=== PATIENT | female | born 1955 | race Caucasian/White ===

== ENCOUNTER → 2018-06-24 | Day surgery (SDC) | payer MEDICARE, BC ==
[~2018-06-24] MED LIST: BUPIVACAINE HCL 0.5 % INJ/PF 30 ML SDV ONE
--- NOTE | 2018-06-24 09:23 | Operative Report ---
PROCEDURE: KNEE RADIOFREQUENCY right under ultrasound guidance Preoperative Diagnosis: right knee osteoarthritis Postoperative Diagnosis:right knee osteoarthritis 1. Superolateral genicular branch from the vastus lateralis 2. Superomedial genicular branch from the vastus medialis 3. Inferomedial genicular branch from the saphenous nerve 4. Medial retinacular branch from the vastus intermedius DATE OF PROCEDURE: 24 june 2018 ANESTHESIA: Local anesthesia COMPLICATIONS: None reported PROCEDURE IN DETAIL: Hx/PE/meds/allergies/applicable labs reviewed. No changes and no contraindications were found. Full description of the procedure was provided including benefits as well as possible complications including transient increased pain, stomach irritation, mood alteration, transient weakness or parasthesias as well as more serious nerve injury, bleeding, infection or allergic reaction. Informed consent was obtained and documented. The patient was brought to the procedure room and placed on the exam table in a comfortable supine position. The place for needle placement was obtained by manual palpation with ultrasound confirmation. The sterile field was prepared by chloroprep and sterile drapes. Local anesthesia superficial and deep was provided by local infiltration of 2% lidocaine. A 17g 50mm radiofrequency introducer needle with a 4 mm active tip was placed overlying the right knee joint and using ultrasound guidance the needle was advanced to a bony endpoint on the superiolateral portion of the femoral condyle of the [L/R] knee. A second needle was advanced to a bony endpoint on the superiomedial portion of the femoral condyle. A third needle was then placed over the inferiomedial portion of the tibial condyle until a bony endpoint was met. 4th needle placed 3mm above the patella with the tip in contact with the Medial retinacular branch from the vastus intermedius. Attempted aspiration yielded no blood. Transverse ultrasound views showed all the needles at 50% depth of the femur and tibia. Motor stimulation was tested at 2.0 volts with no leg movement. Images were saved in AP and lateral. A mixture consisting of 0.5% bupivacaine was slowly injected. Then a radiofrequency ablation of each of the geniculate nerves were done at 80 degrees Celsius for 2 minutes and 30 seconds each. The needles were withdrawn. The patient tolerated the procedure well. After observation the patient was discharged with instructions and follow up. They were also provided contact information to call regarding any concerning symptoms or questions. IMPRESSION: 1. Successful geniculate right knee radiofrequency ablation was performed. 2. The patient was given prescription of home medicines. 3. RTC in 1-2 week(s).
== END ==
LOC: RAD 09:09
PROVIDERS: ATTEND Family Medicine
DX: M17.11 Unilateral primary osteoarthritis, right knee (principal)
CPT/HCPCS: 64640 ×4; J3490

== ENCOUNTER 2020-09-12 09:25 | Day surgery (SDC) | payer MEDICARE, BC ==
[~2020-09-12 09:25] MED LIST changes: -BUPIVACAINE HCL 0.5 % INJ/PF 30 ML SDV ONE; +CHONDR SU A NA/HYALUR INTRAOC KIT (SURGICARE) ONE; +DORZOLAMIDE HCL 2%/TIMOLOL MALEAT 0.5% OPH SOLN 10 ML OD PRN; +EPINEPHRINE INJ/PF 1 MG/1 ML AMPULE ONE; +KETOROLAC TROMETHAMINE 0.45% 4 DROP/0.4 ML DROPERETTE OD PRN; +LIDOCAINE 1%/PHENYLEPHRINE 1.5% 1 ML VIAL ONE; +PREDNISOLONE ACETATE 1% OPH SUSP 5 ML OD PRN
[2020-09-12] MEDS ORDERED: MIDAZOLAM 2 MG/2 ML INJ ONE (09:40)
[2020-09-12] MEDS ORDERED: ONDANSETRON HCL INJ/PF 4 MG/2 ML SDV ONE (09:40)
[2020-09-12] MEDS ORDERED: FENTANYL CITRATE INJ/PF 100 MCG/2 ML AMPUL ONE (09:40)
[2020-09-12] MEDS: TROPICAMIDE 1% OPH SOLN 15 ML OD PRN ×3 (10:02→10:21)
[2020-09-12] MEDS: TETRACAINE HCL 0.5% OPH SOLN 4 ML OD PRN ×3 (10:02→10:33)
[2020-09-12] MEDS: CYCLOPENTOLATE 0.2%/PHENYLEPHRINE 1% OPH SOLN 2 ML OD PRN ×3 (10:03→10:21)
[2020-09-12] MEDS: BESIFLOXACIN HCL 0.6% OPH SUSP 5 ML BOTTLE OD PRN ×3 (10:03→10:56)
--- NOTE | 2020-09-12 14:27 | Operative Report ---
Operative Report-[facility] Operative Report: DATE OF SURGERY: September 12, 2020 PREOPERATIVE DIAGNOSIS: NUCLEAR CATARACT, RIGHT EYE. Glaucoma POSTOPERATIVE DIAGNOSIS: NUCLEAR CATARACT, RIGHT EYE. Glaucoma PROCEDURE PERFORMED: PHACOEMULSIFICATION WITH POSTERIOR CHAMBER INTRAOCULAR LENS IMPLANT, RIGHT EYE. With I stent SURGEON: Berhane Snell DO MEDICATIONS AND ANESTHESIA: Versed: IV Versed Tetracaine drops: 1 to 2 drops given as needed COMPLICATION: None INDICATIONS FOR SURGERY: Medical necessity: Best corrected visual acuity worse than 20/40 secondary to cataracts with impairment of ability to carry out needs or desired activities, blurred vision, visual distortion, reduced contrast sensitivity and/or glare with association functional impairment and supporting documentation/testing, and cataracts causing symptomatic impairment of visual functions not corrected with tolerable changes in glasses or contact lenses interfering with activities of daily life. PROCEDURE: Consent: The risks, benefits and alternatives of this procedures was discussed with the patient. The patient read and signed the consent forms, was identified and was seated in the exam chair. IOL: MX 60 E 20.5 IOL Diopters: Phacoemulsification with posterior chamber intraocular lens implant: The face was prepped with 5% povidone iodine solution, and a few drops of 5% povidone iodine solution was instilled into the inferior fornix. A non-fenestrated drape was placed over the eye and the lids were parted with the speculum. A paracentesis was made with a 15 degree blade, and 1% lidocaine MPF followed by viscoelastic was injected into the anterior chamber. A 2.4 mm metal micro- keratome was used to create a temporal clear corneal incision. A circular anteri or capsulorrhexis was created, followed by hydro-dissection and hydro- delineation. The phacoemulsification hand piece was inserted and the nucleus was removed with the Phaco chop technique. The irrigation-aspiration hand piece was used to remove the residual cortex, and vacuum the posterior capsule. The capsular bag was inflated and viscoelastic and the above-mentioned IOL was injected into the eye with care to insert both leaning and trailing haptics in the capsular bag. The irrigation/aspiration hand piece was reinserted to remove residual viscoelastic from the capsular bag and anterior chamber. The corneal incision was hydrated, and anterior chamber was inflated with sterile BSS via the paracentesis site, and found to be watertight. In addition the I stent inject was used to place 2 stents approximately 2 clock hours apart. Postop medication: 1 drop of prednisolone into operative by followed by 1 drop of Cosopt into operative eye followed by 1 drop of Besivance intraoperative by other:
== END 2020-09-12 11:28 ==
LOC: SC 09:25
PROVIDERS: ATTEND Ophthalmology
DX: H25.11 Age-related nuclear cataract, right eye (principal); H40.1111 Primary open-angle glaucoma, right eye, mild stage; M19.90 Unspecified osteoarthritis, unspecified site; I10 Essential (primary) hypertension; E78.00 Pure hypercholesterolemia, unspecified; G20 Parkinson's disease
CPT/HCPCS: 0191T; 66984; C1783; J0171; J2250; J2405; J3010; J3490; V2632

== ENCOUNTER 2020-09-26 06:51 | Day surgery (SDC) | payer MEDICARE, BC ==
[2020-09-26] MEDS ORDERED: LIDOCAINE 1%/PHENYLEPHRINE 1.5% 1 ML VIAL ONE (07:11)
[2020-09-26] MEDS ORDERED: EPINEPHRINE INJ/PF 1 MG/1 ML AMPULE ONE (07:11)
[2020-09-26] MEDS ORDERED: CHONDR SU A NA/HYALUR INTRAOC KIT (SURGICARE) ONE (07:13)
[2020-09-26] MEDS: TROPICAMIDE 1% OPH SOLN 15 ML OS PRN ×3 (07:39→08:04)
[2020-09-26] MEDS: CYCLOPENTOLATE 0.2%/PHENYLEPHRINE 1% OPH SOLN 2 ML OS PRN ×3 (07:39→08:04)
[2020-09-26] MEDS: TETRACAINE HCL 0.5% OPH SOLN 4 ML OS PRN ×2 (07:39→08:08)
[2020-09-26] MEDS: KETOROLAC TROMETHAMINE 0.45% 4 DROP/0.4 ML DROPERETTE OS PRN ×2 (07:39→08:04)
[2020-09-26] MEDS: BESIFLOXACIN HCL 0.6% OPH SUSP 5 ML BOTTLE OS PRN ×4 (07:39→08:25)
[2020-09-26] MEDS ORDERED: MIDAZOLAM 2 MG/2 ML INJ ONE (07:50)
[2020-09-26] MEDS: PREDNISOLONE ACETATE 1% OPH SUSP 5 ML OS PRN ×2 (08:18→08:25)
[2020-09-26] MEDS: DORZOLAMIDE HCL 2%/TIMOLOL MALEAT 0.5% OPH SOLN 10 ML OS PRN ×2 (08:18→08:25)
[2020-09-26] MEDS ORDERED: CHONDR SU A NA/HYALUR SOD 0.5 ML DISP.SYRIN ONE (08:44)
--- NOTE | 2020-09-26 11:00 | Operative Report ---
Operative Report-[facility] Operative Report: DATE OF SURGERY: September 26, 2020 PREOPERATIVE DIAGNOSIS: NUCLEAR CATARACT, LEFT EYE. Glaucoma POSTOPERATIVE DIAGNOSIS: NUCLEAR CATARACT, LEFT EYE. Glaucoma PROCEDURE PERFORMED: PHACOEMULSIFICATION WITH POSTERIOR CHAMBER INTRAOCULAR LENS IMPLANT, LEFT EYE. With I stent inject SURGEON: Berhane Snell, MEDICATIONS AND ANESTHESIA: Versed: IV Versed Tetracaine drops: 1 to 2 drops given as needed COMPLICATION: None INDICATIONS FOR SURGERY: Medical necessity: Best corrected visual acuity worse than 20/40 secondary to cataracts with impairment of ability to carry out needs or desired activities, blurred vision, visual distortion, reduced contrast sensitivity and/or glare with association functional impairment and supporting documentation/testing, and cataracts causing symptomatic impairment of visual functions not corrected with tolerable changes in glasses or contact lenses interfering with activities of daily life. PROCEDURE: Consent: The risks, benefits and alternatives of this procedures was discussed with the patient. The patient read and signed the consent forms, was identified and was seated in the exam chair. IOL: MX 60 E 21.0 IOL Diopters: Phacoemulsification with posterior chamber intraocular lens implant: The face was prepped with 5% povidone iodine solution, and a few drops of 5% povidone iodine solution was instilled into the inferior fornix. A non-fenestrated drape was placed over the eye and the lids were parted with the speculum. A paracentesis was made with a 15 degree blade, and 1% lidocaine MPF followed by viscoelastic was injected into the anterior chamber. A 2.4 mm metal micro- keratome was used to create a temporal clear corneal incision. A circular a nterior capsulorrhexis was created, followed by hydro-dissection and hydro- delineation. The phacoemulsification hand piece was inserted and the nucleus was removed with the Phaco chop technique. The irrigation-aspiration hand piece was used to remove the residual cortex, and vacuum the posterior capsule. The capsular bag was inflated and viscoelastic and the above-mentioned IOL was injected into the eye with care to insert both leaning and trailing haptics in the capsular bag. The irrigation/aspiration hand piece was reinserted to remove residual viscoelastic from the capsular bag and anterior chamber. The corneal incision was hydrated, and anterior chamber was inflated with sterile BSS via the paracentesis site, and found to be watertight. In addition the I stent inject was used to place 2 stents approximately 2 clock hours apart. Postop medication:1 drop of prednisolone into operative by followed by 1 drop of Cosopt into operative eye followed by 1 drop of Besivance intraoperative by Other:
--- OUTSIDE RECORDS SUMMARY | 2020-09-27 17:53 | XMS REPORT ---
:1955 [facility] [address] [place] [address] Care Team Providers Name Role Phone Unavailable Unavailable Unavailable Allergies, Adverse Reactions, Alerts This patient has no known allergies or adverse reactions. Medications Ordered Filled Start Stop Current Ordering Indication Dosage Frequency Signature Comments Components Medication Medication Date Date Medication? Clinician (SIG) Name Name benzonatate No 1mg Q1D benzonatat 100 mg e 100 mg capsule capsule Take 1 mg Take 1 mg every day every day by oral by oral route for 5 route for days. 5 days. carbidopa No 1 QID carbidopa 25 25 mg-levodopa mg-levodop 100 mg a 100 mg tablet take tablet 1 po 3-4 take 1 po times daily 3-4 times daily diazepam 5 No diazepam 5 mg tablet mg tablet Take 1 Take 1 tablet by tablet by mouth 30 mouth 30 minutes minutes before before procedure, procedure, Bring 1 Bring 1 tablet with tablet you to the with you procedure to the and take as procedure needed. and take as needed. furosemide No 1 Q1D furosemide 20 mg 20 mg tablet Take tablet 1 tablet as Take 1 needed by tablet as oral route. needed by oral route. gabapentin No 1capsul TID gabapentin 100 mg e(s) 100 mg capsule capsule Take 1 Take 1 capsule 3 capsule 3 times a day times a by oral day by route for oral route 90 days. for 90 days. lisinopril No lisinopril 10 mg 10 mg tablet Take tablet 1 tablet Take 1 every day tablet by oral every day route for by oral 90 days. route for 90 days. olopatadine No olopatadin 0.1 % eye e 0.1 % drops Use eye drops as directed Use as directed Restasis No Restasis 0.05 % eye 0.05 % eye drops in a drops in a dropperette dropperett Use as e Use as directed directed rosuvastati No rosuvastat n 10 mg in 10 mg tablet Take tablet 1 tablet Take 1 every day tablet by oral every day route for by oral 90 days. route for 90 days. valacyclovi No valacyclov r 500 mg ir 500 mg tablet Take tablet 1 tablet Take 1 every day tablet by oral every day route for by oral 90 days. route for 90 days. Yuvafem 10 No Yuvafem 10 mcg vaginal mcg tablet vaginal tablet zolpidem 10 No 1 Q1D zolpidem mg tablet 10 mg Take 1 tablet tablet Take 1 every day tablet by oral every day route for by oral 30 days. route for 30 days. isradipine No isradipine 2.5 mg 2.5 mg capsule 1 capsule 1 po qd po qd prednisone No prednisone 10 mg 10 mg tablet tablet Bactrim DS No Bactrim DS 800 mg-160 800 mg-160 mg tablet mg tablet Take 1 Take 1 tablet tablet twice daily twice for 1 to 3 daily for days at 1 to 3 first onset days at of symptoms first of bladder onset of infection symptoms of bladder infection Fosamax 70 No 1 Q1W Fosamax 70 mg tablet mg tablet Take 1 Take 1 tablet tablet every week every week by oral by oral route. route. lisinopril No 1 Q1D lisinopril 5 mg tablet 5 mg Take 1 tablet tablet Take 1 every day tablet by oral every day route. by oral route. ropinirole No 2 TID ropinirole 0.25 mg 0.25 mg tablet Take tablet 2 tablets 3 Take 2 times a day tablets 3 by oral times a route. day by oral route. tizanidine No .5 Q6H tizanidine 4 mg tablet 4 mg Take 0.5 tablet tablets Take 0.5 every 6 tablets hours by every 6 oral route hours by as needed. oral route as needed. amantadine No 1 BID amantadine HCl 100 mg HCl 100 mg tablet Take tablet 1 tablet Take 1 twice a day tablet by oral twice a route. day by oral route. Medications No Medication not s not documented documented Problems Condition Condition Condition Status Onset Resolution Last Treatin g Comments Name Details Category Date Date Treatment Clinician Date Tardive Tardive Problem Active dyskinesia Dyskinesia 2-17 00:00: 00 Constipatio Constipatio Problem Active 2018-11 n n 1-14 00:00: 00 Recurrent Recurrent Problem Active 2018-11 cystitis Cystitis 1-14 00:00: 00 Atrophic Atrophic Problem Active 2018-11 vaginitis Vaginitis 1-14 00:00: 00 Urgent Urgent Problem Active 2018-11 desire to Desire to -14 urinate Urinate 00:00: 00 Osteoarthri Osteoarthri Problem Active tis of knee tis of Knee 02-26 00:00: 00 Knee pain Knee Pain Problem Active 4 00:00: 00 Herpesvirus Herpesvirus Problem Active infection Infection 02-05 00:00: 00 Hypercholes Hypercholes Problem Active terolemia terolemia 02-05 00:00: 00 Parkinson's Parkinson's Problem Active disease Disease 02-05 00:00: 00 Hypertensiv Hypertensiv Problem Active e disorder e Disorder 02-05 00:00: 00 Right-sided Right-sided Problem Active tinnitus tinnitus Right Right Problem Active asymmetrica asymmetrica l SNHL l SNHL Sensorineur Sensorineur Problem Active al hearing al hearing loss, loss, bilateral bilateral BPPV BPPV Problem Active (benign (benign paroxysmal paroxysmal positional positional vertigo), vertigo), right right Procedures Procedure Date / Time Performed Performing Clinician Devic e RADIOLOGIC EXAM, KNEE; COMPLETE, 4 2019-10-05 00:00:00 OR MORE VIEWS Mammography 2018-11-16 00:00:00 Radiofrequency Ablation (Surg) 2018-06-24 00:00:00 Colonoscopy 2013-11-16 00:00:[address] GASTR ADJ DEVICE 2008-11-16 00:00:00 Foot Surgery 2007-11-16 00:00:00 Knee Surgery 2007-11-16 00:00:00 Procedures not documented Results Test Description Test Time Test Comments Text Results Atomic Results Result Comments Urinalysis dipstick panel - Urine by Automated test strip 2018-11 15:32:22 Test Item Value Reference Range Comments RESULT SG Reference Range: 1.000-1.030 (test code = RESULT SG Re ference 1.020 Range: 1.000-1.030) RESULT PH Reference Range: 5-9 (test code = RESULT PH Reference Range: 5-9) 5 RESULT KRISTOFER Reference Range: NEG (test code = RESULT KRISTOFER Referenc e Range: NEG NEG) RESULT NIT Reference Range: NEG (test code = RESULT NIT Referenc e Range: NEG NEG) RESULT PRO Reference Range: NEG (test code = RESULT PRO Referenc e Range: NEG NEG) RESULT GLU Reference Range: NORM (test code = RESULT GLU Referen ce Range: NORM NORM) RESULT KET Reference Range: NEG (test code = RESULT KET Referenc e Range: NEG NEG) RESULT BLD Reference Range: NEG (test code = RESULT BLD Referenc e Range: NEG NEG) Urinalysis dipstick panel - Urine by Automated test [id number] 15:32:22 Test Item Value Reference Range Comments RESULT SG Reference Range: 1.000-1.030 (test code = 1.020 RESULT SG Reference Range: 1.000-1.030) RESULT PH Reference Range: 5-9 (test code = RESULT PH 5 Reference Range: 5-9) RESULT KRISTOFER Reference Range: NEG (test code = RESULT NEG KRISTOFER Reference Range: NEG) RESULT NIT Reference Range: NEG (test code = RESULT NEG NIT Reference Range: NEG) RESULT PRO Reference Range: NEG (test code = RESULT NEG PRO Reference Range: NEG) RESULT GLU Reference Range: NORM (test code = RESULT NORM GLU Reference Range: NORM) RESULT KET Reference Range: NEG (test code = RESULT NEG KET Reference Range: NEG) RESULT BLD Reference Range: NEG (test code = RESULT NEG BLD Reference Range: NEG) Assessments Condition Name Status Diagnosis Date Treating Clinici an BPPV (benign paroxysmal positional Active vertigo), right Sensorineural hearing loss, bilateral Active Right asymmetrical SNHL Active Right-sided tinnitus Active Knee pain Active 2020-08-08 09:41:19 Osteoarthritis of knee Active 2020-08-08 09:41:21 Osteoarthritis of knee Active 2020-08-01 08:39:57 Knee pain Active 2020-08-01 08:39:57 Osteoarthritis of knee Active 2020-07-26 10:23:27 Knee pain Active 2020-07-27 11:01:47 Knee pain Active 2020-07-03 08:46:24 Osteoarthritis of knee Active 2020-07-03 08:47:48 Effusion of right knee joint Active 2020-07-03 08:47:48 Iliotibial band friction syndrome Active 2020-07-04 14: 29:50 Knee pain Active 2020-03-28 15:22:56 Osteoarthritis of knee Active 2020-03-28 16:14:25 Effusion of right knee joint Active 2020-03-28 16:48:43 Knee pain Active 2020-01-18 08:59:54 Osteoarthritis of knee Active 2020-01-18 08:59:54 Parkinson's disease Active 2020-01-18 08:59:54 Tardive dyskinesia Active 2020-01-18 08:59:54 Knee pain Active 2020-01-16 09:21:57 Osteoarthritis of knee Active 2020-01-16 09:21:57 Parkinson's disease Active 2020-01-16 09:21:57 Tardive dyskinesia Active 2020-01-16 09:21:57 Knee pain Active 2020-01-11 13:40:03 Osteoarthritis of knee Active 2020-01-11 16:57:07 Knee pain Active 2020-01-10 08:02:36 Osteoarthritis of knee Active 2020-01-10 08:02:36 Parkinson's disease Active 2020-01-10 08:02:36 Tardive dyskinesia Active 2020-01-10 08:02:36 Knee pain Active 2020-01-06 14:37:09 Osteoarthritis of knee Active 2020-01-06 14:37:09 Parkinson's disease Active 2020-01-06 14:37:09 Tardive dyskinesia Active 2020-01-06 14:37:09 Knee pain Active 2020-01-04 14:32:58 Osteoarthritis of knee Active 2020-01-04 15:17:15 Knee pain Active 2020-01-03 09:09:57 Osteoarthritis of knee Active 2020-01-03 09:09:57 Parkinson's disease Active 2020-01-03 09:09:57 Tardive dyskinesia Active 2020-01-03 09:09:57 Knee pain Active 2020-01-02 15:49:20 Osteoarthritis of knee Active 2020-01-02 15:49:22 Parkinson's disease Active 2020-01-02 15:53:23 Tardive dyskinesia Active 2020-01-02 15:53:48 Pain in right hip joint Active 2019-12-21 14:03:50 Low back pain Active 2019-12-21 14:03:57 Knee pain Active 2019-12-21 13:18:41 Osteoarthritis of knee Active 2019-12-21 14:02:31 Effusion of right knee joint Active 2019-12-21 14:03:44 Knee pain Active 2019-10-05 14:51:19 Osteoarthritis of knee Active 2019-10-05 15:30:46 Constipation Active 2019-09-29 16:01:19 Urgent desire to urinate Active 2019-09-29 16:01:24 Atrophic vaginitis Active 2019-09-29 16:01:28 Recurrent cystitis Active 2019-09-29 16:01:31 Knee pain Active 2019-07-01 09:06:05 Osteoarthritis of knee Active 2019-07-01 09:21:54 Knee pain Active 2019-06-24 10:18:28 Osteoarthritis of knee Active 2019-06-24 10:51:00 Knee pain Active 2019-06-15 14:01:18 Osteoarthritis of knee Active 2019-06-15 14:05:44 Knee pain Active 2019-05-16 09:06:53 Osteoarthritis of knee Active 2019-05-16 09:06:53 Knee pain Active 2019-02-11 08:53:15 Knee pain Active 2018-11-03 13:25:50 Osteoarthritis of knee Active 2018-11-03 13:27:43 Encounters Start End Encounter Admission Attending Care Care Encounter Date/Time Date/Time Type Type Clinicians Facility Department ID 2020-08-29 2020-08-29 Appointment; [facility] [id number] 10:00:00 13:15:45 Vilma Cazares NP 2020-08-10 2020-08-10 Mildred Garber 240 [id number] 00:00:00 00:00:00 DO: [facility] [address] [place] [address], Ph. [phone] 2020-08-03 2020-08-03 Mildred Garber 240 [id number] 00:00:00 00:00:00 DO: [facility] [address] [place] [address], Ph. [phone] 2020-07-27 2020-07-27 Mildred Garber 240 [id number] 00:00:00 00:00:00 DO: [facility] [address] [place] [address], Ph. [phone] 2020-07-04 2020-07-04 Mildred Garbert 240 [id number] 00:00:00 00:00:00 DO: [facility] [address] [place] [address], Ph. [phone] 2020-03-28 2020-03-28 Mildred Garbereret 240 [id number] 00:00:00 00:00:00 DO: [facility] [address] [place] [address], Ph. [phone] 2020-01-18 2020-01-18 Ruthann Childeret [id number] 00:00:00 00:00:00 [facility] [address] REPLANTER: [address] [place] [address], Ph. 2020-01-16 2020-01-16 Ruthann Childeret [id number] 00:00:00 00:00:00 [facility] [address] REPLANTER: [address] [place] [address], Ph. 2020-01-11 2020-01-11 Mildred Garbert 240 [id number] 00:00:00 00:00:00 DO: [facility] [address] [place] [address], Ph. [phone] 2020-01-10 2020-01-10 Ruthann Childeret [id number] 00:00:00 00:00:00 [facility] [address] REPLANTER: [address] [place] [address], Ph. 2020-01-06 2020-01-06 Lauraehsan Levy Gaston [id number] 00:00:00 00:00:00 Lo, DPT: [facility] [id number] [address] [place] [address], Ph. 2020-01-04 2020-01-04 Mildred Garber 240 [id number] 00:00:00 00:00:00 DO: [facility] [address] [place] [address], Ph. [phone] 2020-01-03 2020-01-03 Laura Lj Mildred Maldonadot [id number] 00:00:00 00:00:00 Lo, DPT: [facility] [address] [address] [place] [address], Ph. 2020-01-02 2020-01-02 Laura Calhoun Mildred Maldonadot [id number] 00:00:00 00:00:00 Lo, DPT: [facility] [address] [address] [place] [address], Ph. 2019-12-21 2019-12-21 Milrded Garber 240 [id number] 00:00:00 00:00:00 DO: [facility] [address] [place] [address], Ph. [phone] 2019-10-05 2019-10-05 Mildred Garber 240 [id number] 00:00:00 00:00:00 DO: [facility] [address] [place] [address], Ph. [phone] 2019-09-29 2019-09-29 Sinan Levy [id number] 00:00:00 00:00:00 MD Liv: [facility] [address] [address] [place] [address], Ph. [phone] 2019-07-01 2019-07-01 Mildred Garber 240 [id number] 00:00:00 00:00:00 DO: [facility] [address] [place] [address], Ph. [phone] 2019-06-24 2019-06-24 Maco BergerMateusz hamptonGastonmarin Maldonadot 240 [id number] 00:00:00 00:00:00 DO: [facility] [address] [place] [address], Ph. [phone] 2019-06-15 2019-06-15 Maco MayMateuszGaston Gaston 240 [id number] 00:00:00 00:00:00 DO: [facility] [address] [place] [address], Ph. [phone] 2019-05-16 2019-05-16 Mildred Garbert 240 [id number] 00:00:00 00:00:00 DO: [facility] [address] [facility] [place] [address], Ph. 2019-02-11 2019-02-11 Maco May: Mildred Maldonadot 240 [id number] 00:00:00 00:00:00 [facility] [place] [facility] [address] [place] [address], Ph. [phone] 2018-11-03 2018-11-03 Maco May: Mildred Childeret 240 [id number] 00:00:00 00:00:00 [facility] [address] [place] [address], Ph. [phone] Family History Family Member Diagnosis Comments Start Date Stop Date Father Family history of Metastatic cancer Immunizations Ordered Immunization Filled Immunization Date Status Commen ts Refusal Reason Name Name influenza, 2019-08-16 Completed injectable, 00:00:00 quadrivalent influenza, 2018-08-16 Completed unspecified 00:00:00 formulation influenza, 2017-07-20 Completed injectable, 00:00:00 quadrivalent Social History Smoking Status Start Date Stop Date Never smoked tobacco (finding) Vital Signs Vital Name Observation Time Observation Value Comments Height 2020-08-10 00:00:00 61 [in_i] BMI (Body Mass Index) 2020-08-10 00:00:00 31 kg/m2 Body Weight 2020-08-10 00:00:00 164 [lb_av] Height 2020-08-03 00:00:00 61 [in_i] BMI (Body Mass Index) 2020-08-03 00:00:00 31 kg/m2 Body Weight 2020-08-03 00:00:00 164 [lb_av] Height 2020-07-27 00:00:00 61 [in_i] BMI (Body Mass Index) 2020-07-27 00:00:00 31 kg/m2 Body Weight 2020-07-27 00:00:00 164 [lb_av] Height 2020-07-04 00:00:00 61 [in_i] BMI (Body Mass Index) 2020-07-04 00:00:00 31 kg/m2 Body Weight 2020-07-04 00:00:00 164 [lb_av] Height 2020-03-28 00:00:00 61 [in_i] BMI (Body Mass Index) 2020-03-28 00:00:00 31 kg/m2 Body Weight 2020-03-28 00:00:00 164 [lb_av] BP Diastolic 2020-01-18 00:00:00 61 mm[Hg] Height 2020-01-18 00:00:00 61 [in_i] BMI (Body Mass Index) 2020-01-18 00:00:00 31 kg/m2 BP Systolic 2020-01-18 00:00:00 106 mm[Hg] Body Weight 2020-01-18 00:00:00 164 [lb_av] BP Diastolic 2020-01-11 00:00:00 67 mm[Hg] Height 2020-01-11 00:00:00 61 [in_i] BMI (Body Mass Index) 2020-01-11 00:00:00 31 kg/m2 BP Systolic 2020-01-11 00:00:00 141 mm[Hg] Body Weight 2020-01-11 00:00:00 164 [lb_av] BP Diastolic 2020-01-04 00:00:00 65 mm[Hg] Height 2020-01-04 00:00:00 61 [in_i] BMI (Body Mass Index) 2020-01-04 00:00:00 31 kg/m2 BP Systolic 2020-01-04 00:00:00 97 mm[Hg] Body Weight 2020-01-04 00:00:00 164 [lb_av] BP Diastolic 2019-12-21 00:00:00 80 mm[Hg] Height 2019-12-21 00:00:00 61 [in_i] BMI (Body Mass Index) 2019-12-21 00:00:00 31 kg/m2 BP Systolic 2019-12-21 00:00:00 138 mm[Hg] Body Weight 2019-12-21 00:00:00 164 [lb_av] BP Diastolic 2019-10-05 00:00:00 62 mm[Hg] Height 2019-10-05 00:00:00 61 [in_i] BMI (Body Mass Index) 2019-10-05 00:00:00 31 kg/m2 BP Systolic 2019-10-05 00:00:00 118 mm[Hg] Body Weight 2019-10-05 00:00:00 164 [lb_av] BP Diastolic 2019-09-29 00:00:00 74 mm[Hg] Height 2019-09-29 00:00:00 61 [in_i] BMI (Body Mass Index) 2019-09-29 00:00:00 31 kg/m2 BP Systolic 2019-09-29 00:00:00 118 mm[Hg] Body Weight 2019-09-29 00:00:00 164 [lb_av] BP Diastolic 2019-07-01 00:00:00 69 mm[Hg] Height 2019-07-01 00:00:00 61 [in_i] BMI (Body Mass Index) 2019-07-01 00:00:00 31.2 kg/m2 BP Systolic 2019-07-01 00:00:00 124 mm[Hg] Body Weight 2019-07-01 00:00:00 165 [lb_av] BP Diastolic 2019-06-24 00:00:00 70 mm[Hg] Height 2019-06-24 00:00:00 61 [in_i] BMI (Body Mass Index) 2019-06-24 00:00:00 31.2 kg/m2 BP Systolic 2019-06-24 00:00:00 105 mm[Hg] Body Weight 2019-06-24 00:00:00 165 [lb_av] BP Diastolic 2019-06-15 00:00:00 76 mm[Hg] Height 2019-06-15 00:00:00 61 [in_i] BMI (Body Mass Index) 2019-06-15 00:00:00 31.2 kg/m2 BP Systolic 2019-06-15 00:00:00 131 mm[Hg] Body Weight 2019-06-15 00:00:00 165 [lb_av] BP Diastolic 2019-02-11 00:00:00 66 mm[Hg] Height 2019-02-11 00:00:00 61 [in_i] BMI (Body Mass Index) 2019-02-11 00:00:00 31.2 kg/m2 BP Systolic 2019-02-11 00:00:00 113 mm[Hg] Body Weight 2019-02-11 00:00:00 165 [lb_av] BP Diastolic 2018-11-03 00:00:00 66 mm[Hg] Height 2018-11-03 00:00:00 61 [in_i] BMI (Body Mass Index) 2018-11-03 00:00:00 31.2 kg/m2 BP Systolic 2018-11-03 00:00:00 100 mm[Hg] Body Weight 2018-11-03 00:00:00 165 [lb_av] Systolic blood pressure 2020-08-29 10:04:00 120 mm[Hg] Diastolic blood pressure 2020-08-29 10:04:00 90 mm[Hg] Body height 2020-08-29 10:04:00 62 [in_us] Weight 2020-08-29 10:04:00 138.125 [lb_av] Body mass index (BMI) [Ratio] 2020-08-29 10:04:00 25.26 kg/m2 Hospital Discharge Instructions NameDatesDetailsInstructions not documented1. Knee pain 2. Osteoarthritis of knee 3. Effusion of right knee joint 4. Iliotibial band friction syndrome Discussion Note: None recorded. Patient educational handouts: No information available.1. Knee pain tizanidine 4 mg tablet 2. Osteoarthritis of knee 3. Effusion of right knee joint Discussion Note: None recorded. Patient educational handouts: No information available.1. Knee pain 2. Osteoarthritis of knee physical therapy referral - Please call and schedule patient for right knee physical therapy. 3. Effusion of right knee joint 4. Pain in right hip joint 5. Low back pain getting back to normal after low back pain: care instructions Discussion Note: None recorded.1. Constipation 2. Urgent desire to urinate 3. Atrophic vaginitis 4. Recurrent cystitis urinalysis, dipstick, auto Bactrim DS 800 mg-160 mg tablet Discussion Note She will provide us a urine for culture the next time she has symptoms of infection. I provided her a prescription for Bactrim for self start therapy if she is unable to provide us a urine sample. Typically she will use the antibiotic twice daily for 1 to 3 days as necessary. She will begin MiraLAX daily. She will continue her vaginal tablet estrogen insert for another month to see if her symptoms improve before trying Myrbetriq. I provided her samples of Myrbetriq 25 mg to try for 4 weeks beginning around mid October if her bladder and urethral symptoms are unimproved. I will see her back on a as needed basis. Patient educational handouts: No information available.1. Knee pain 2. Osteoarthritis of knee Discussion Note: None recorded. Patient educational handouts:No information available.1. Knee pain Discussion Note: None recorded. Patient educational handouts: No information available.1. Knee pain 2. Osteoarthritis of knee knee arthritis: care instructions Discussion Note: None recorded.
== END 2020-09-26 08:59 ==
LOC: SC 06:51
PROVIDERS: ATTEND Ophthalmology
DX: H25.12 Age-related nuclear cataract, left eye (principal); H40.1121 Primary open-angle glaucoma, left eye, mild stage; Z98.41 Cataract extraction status, right eye; I10 Essential (primary) hypertension; E78.00 Pure hypercholesterolemia, unspecified; G20 Parkinson's disease; F41.9 Anxiety disorder, unspecified
CPT/HCPCS: 0191T; 66984; C1783; J0171; J2250; J3490; V2632